=== PATIENT | male | born 1985 | race African-American/Black ===

== ENCOUNTER 2017-03-15 13:11 | Emergency (ER) | payer OTHER ==
[~2017-03-15] VITALS: Ht 177.8 cm; Wt 104.3 kg
[2017-03-15] MEDS ORDERED: IBUP800T23 PO (14:37)
[2017-03-15] MEDS ORDERED: ROBA500T PO (14:37)
[2017-03-15 14:49] VITALS: BP 118/75
== END 2017-03-15 14:50 | disposition home or self-care (01) ==
LOC: M ED 14:34
DX: S73.101A Unspecified sprain of right hip, initial encounter (principal); W01.0XXA Fall on same level from slipping, tripping and stumbling without subsequent striking against object, initial encounter; Y92.9 Unspecified place or not applicable; Y93.89 Activity, other specified; Y99.1 Military activity; D55.0 Anemia due to glucose-6-phosphate dehydrogenase [G6PD] deficiency; Z86.73 Personal history of transient ischemic attack (TIA), and cerebral infarction without residual deficits; Z88.0 Allergy status to penicillin

== ENCOUNTER 2018-09-25 03:10 | Emergency (ER) | payer OTHER ==
[~2018-09-25] VITALS: Ht 177.8 cm; Wt 100.0 kg
[~2018-09-25 03:10] MED LIST: IBUP1TAB7 PO; ROBA500T PO
[2018-09-25 05:10] LABS: CHLAMYDIA DNA AMPLIFICATION NEGATIVE (NEGATIVE); GC DNA AMPLIFICATION NEGATIVE (NEGATIVE)
[2018-09-25 05:59] VITALS: BP 132/71
== END 2018-09-25 06:00 | disposition home or self-care (01) ==
LOC: M ED 03:10
DX: Z11.3 Encounter for screening for infections with a predominantly sexual mode of transmission (principal); Z86.19 Personal history of other infectious and parasitic diseases; Z88.0 Allergy status to penicillin; Z88.8 Allergy status to other drugs, medicaments and biological substances

== ENCOUNTER → 2022-03-06 | Outpatient (CLI) | payer OTHER | LOC: M PLAIMG 08:46 | PROVIDERS: ATTEND Physician Assistant | DX: R91.1 Solitary pulmonary nodule (principal) ==

== ENCOUNTER 2023-10-02 12:58 | Outpatient (RCR) | payer OTHER | END 2023-10-04 | LOC: M OT 12:58 | PROVIDERS: ATTEND Nurse Practitioner Family | DX: M79.644 Pain in right finger(s) (principal) ==

== ENCOUNTER 2023-10-16 12:15 | Outpatient (RCR) | payer OTHER | END 2023-11-04 | LOC: M OT 12:15 | PROVIDERS: ATTEND Nurse Practitioner Family | DX: M65.311 Trigger thumb, right thumb (principal); M65.312 Trigger thumb, left thumb ==

== ENCOUNTER 2023-11-27 14:45 | Outpatient (RCR) | payer OTHER | END 2023-12-03 | LOC: M OT 14:45 | PROVIDERS: ATTEND Nurse Practitioner Family | DX: M79.644 Pain in right finger(s) (principal) ==

== ENCOUNTER → 2024-12-14 | Outpatient (REF) | LOC: M PLAIMG 12:43 | PROVIDERS: ATTEND Internal Medicine | DX: R52 Pain, unspecified (principal) ==